=== PATIENT | female | born 1975 | race Caucasian/White ===

== ENCOUNTER 2017-12-04 16:47 | Emergency (ER) | payer SELFPAY ==
--- NOTE | 2017-12-04 17:29 | EDM.PDOC ---
ED HPI GENERAL MEDICAL PROBLEM - General Chief Complaint: Upper Extremity Injury/Pain Stated Complaint: RIGHT HAND PAIN Time Seen by Provider: 12/04/17 16:48 Source of Information: Reports: Patient History Limitations: Reports: No Limitations - History of Present Illness INITIAL COMMENTS - FREE TEXT/NARRATIVE: History of present illness: []Patient punched [place] wall 4 [place] in an [place] there. She was placed in a cast and told to follow-up but then they moved. Removed her own cast suddenly because she felt it was too loose and it was not helping her. She has not been able to follow-up with orthopedics [facility] and [place]. Review of systems: As per history of present illness and below otherwise all systems reviewed and negative. Past medical history: As per history of present illness and as reviewed below otherwise noncontributory. Surgical history: As per history of present illness and as reviewed below otherwise noncontributory. Social history: No reported history of drug or alcohol abuse. Family history: As per history of present illness and as reviewed below otherwise noncontributory. Physical exam: General: Well developed, well nourished in NAD HEENT: Atraumatic, normocephalic, pupils reactive, negative for conjunctival pallor or scleral icterus, mucous membranes moist, throat clear, neck supple, nontender, trachea midline. Lungs: Clear to auscultation, breath sounds equal bilaterally, chest nontender. Heart: S1S2, regular, negative for clicks, rubs, or JVD. Abdomen: Soft, nondistended, nontender. Negative for masses or hepatosplenomegaly. Negative for costovertebral tenderness. Pelvis: Stable nontender. Genitourinary: Deferred. Rectal: Deferred. Extremities: Right hand no swelling tenderness over her fifth medical carpal bone distal capillary refill intact sensation intact, negative for cords or calf pain. Neurovascular unremarkable. Neuro: Awake, alert, oriented. Cranial nerves II through XII unremarkable. Cerebellum unremarkable. Motor and sensory unremarkable throughout. Exam nonfocal. Diagnostics: []X-ray shows a displaced distal fifth metacarpal fracture healing Therapeutics: []hAnd splint replaced Impression: []4 week old right fifth metacarpal fracture Plan: []Follow-up with Dr. Hatch asked available appointment Definitive disposition and diagnosis as appropriate pending reevaluation and review of above. right wrist Pain Score (Numeric/FACES): 1 - Related Data Allergies Allergy/AdvReac Type Severity Reaction Status Date / Time acetaminophen [From Lortab] Allergy Hives Verified 12/04/17 16:58 codeine Allergy Anaphylactic Verified 12/04/17 16:58 Shock hydrocodone [From Lortab] Allergy Hives Verified 12/04/17 16:58 Home Meds: Home Meds . [No Known Home Meds] 12/04/17 [History] Lisinopril 5 mg PO DAILY 12/04/17 [History] traMADol [Ultram] 50 mg PO DAILY 12/04/17 [History] Past Medical History - Past Health History Medical/Surgical History: Denies Medical/Surgical History Social & Family History - Family History Family Medical History: Noncontributory - Tobacco Use Smoking Status *Q: Current Every Day Smoker Years of Tobacco use: 30 Packs/Tins Daily: 0.3 - Caffeine Use Caffeine Use: Reports: Soda - Recreational Drug Use Recreational Drug Use: No Review of Systems - Review of Systems Review Of Systems: See Below (See history of present illness) ED EXAM, GENERAL - Physical Exam Exam: See Below (See history of present illness) Course - Vital Signs Last Recorded V/S: Last Vital Signs Temp 97.3 F 12/04/17 17:00 Pulse 85 12/04/17 17:00 Resp 18 12/04/17 17:00 BP 157/81 H 12/04/17 17:00 Pulse Ox 97 12/04/17 17:00 - Orders/Labs/Meds Orders: Active Orders 24 hr Category Date Time Status Hand 2V Rt [CR] Stat Exams 12/04/17 17:07 Taken Departure - Departure Time of Disposition: 17:28 Disposition: Home, Self-Care 01 Condition: Good Clinical Impression: Disp fracture of neck of right fifth metacarpal bone with malunion Qualifiers: Fracture type: closed Qualified Code(s): S62.336P - Displaced fracture of neck of fifth metacarpal bone, right hand, subsequent encounter for fracture with malunion - Discharge Information Referrals: PCP,None [Primary Care Provider] - Myesha Hatch MD [Physician] - Additional Instructions: The following information is given to patients seen in the emergency department who are being discharged to home. This information is to outline your options for follow-up care. We provide all patients seen in our emergency department with a follow-up referral. The need for follow-up, as well as the timing and circumstances, are variable depending upon the specifics of your emergency department visit. If you don't have a primary care physician on staff, we will provide you with a referral. We always advise you to contact your personal physician following an emergency department visit to inform them of the circumstance of the visit and for follow-up with them and/or the need for any referrals to a consulting specialist. The emergency department will also refer you to a specialist when appropriate. This referral assures that you have the opportunity for follow-up care with a specialist. All of these measure are taken in an effort to provide you with optimal care, which includes your follow-up. Under all circumstances we always encourage you to contact your private physician who remains a resource for coordinating your care. When calling for follow-up care, please make the office aware that this follow-up is from your recent emergency room visit. If for any reason you are refused follow-up, please contact the [facility] Emergency Department at and asked to speak to the emergency department charge nurse. Follow-up as directed Motrin for pain ice and elevate as needed. [facility] - Plastic Surgery Professional Building [address] [place] [address], [address] [place] [address] - My Orders Last 24 Hours: My Active Orders 12/04/17 17:07 Hand 2V Rt [CR] Stat - Assessment/Plan Last 24 Hours: My Active Orders 12/04/17 17:07 Hand 2V Rt [CR] Stat
--- NOTE | 2017-12-07 10:12 | CR ---
EXAM DATE: 12/04/17 PATIENT'S AGE: 42 Patient: ALLIE HAUSER Facility: [place], [place] Site . Site : [id number] Study: XRay Extremity Right hand [id number]/9/2018 5:21:08 PM Ordering Physician: Damian Flynn Final Report: Indication: Punching injury. Technique: Right hand two views. Comparison: None. Findings: There is an obliquely oriented mildly impacted fracture involving the head and neck of the 5th metacarpal. Mild radial and ventral displacement of the distal fracture fragment. No additional osseous abnormality. No radiopaque foreign body evident in the soft tissues. Impression: Fracture of the distal 5th metacarpal. Dictated by Adrian Sandoval MD @ 12/04/2017 5:32:49 PM Dictated by: Adrian Sandoval MD @ 12/04/2017 17:33:14 (Electronic Signature) Report Signed by Proxy. JEVON
== END 2017-12-04 17:49 | disposition home or self-care (01) ==
LOC: MW.ED 16:47
DX: S62.336P Displaced fracture of neck of fifth metacarpal bone, right hand, subsequent encounter for fracture with malunion (principal); F17.210 Nicotine dependence, cigarettes, uncomplicated; Z79.891 Long term (current) use of opiate analgesic; Z79.899 Other long term (current) drug therapy; Z88.5 Allergy status to narcotic agent; Z88.6 Allergy status to analgesic agent; W22.8XXA Striking against or struck by other objects, initial encounter
CPT/HCPCS: 29125; 73120-26-RT; 73120-RT; 99283

== ENCOUNTER 2024-10-31 21:49 | Emergency (ER) | payer SELFPAY ==
[2024-10-31] MEDS: Famotidine 20 MG Tab PO ONE (23:14)
== END 2024-10-31 23:24 | disposition home or self-care (01) ==
LOC: MW.ED 21:49
DX: L03.031 Cellulitis of right toe (principal); T36.1X5A Adverse effect of cephalosporins and other beta-lactam antibiotics, initial encounter; Z75.8 Other problems related to medical facilities and other health care; Z88.0 Allergy status to penicillin; Z88.5 Allergy status to narcotic agent; Z88.8 Allergy status to other drugs, medicaments and biological substances; Z79.899 Other long term (current) drug therapy
CPT/HCPCS: 99283; A9270